=== PATIENT | male | born 1940 | race Caucasian/White ===

== ENCOUNTER → 2016-10-09 | Outpatient (CLI) | payer MEDICARE, OTHER ==
[~2016-10-09] VITALS: Ht 188 cm; Wt 97.3 kg
[~2016-10-09] MED LIST: ADVIL PM 38 MG-1 TAB PO; ALBUTEROL0.83 MG/ML IH; AMOXICILLIN 8751 TAB PO; ASPIRIN E.C. 8181 MG PO; ATIVAN 0.50.5 MG/TAB PO; COLACE 100100 MG/CAP PO; COUMADIN 1010 MG/TAB PO; COUMADIN 5MG5 MG/TAB PO; COUMADIN 77.5 MG/TAB PO; DECADRON 4MG TAB4 MG PO; DOXYCYCLINE 10100 MG PO; ELIQUIS 5MG PO; FLAGYL500 MG PO; FORTAMET1000 MG PO; GLUCOPHAGE1000 MG PO; K-TAB20 PO; LASIX 20MG TABL20 MG PO; LEVAQUIN 5500 MG/TA1 PO; LISINOPRIL10 MG PO; MULTIPLE VITAMI1 CAP PO; NEURONTIN100 MG PO; NEURONTIN100 MG/CAP PO; NEURONTIN300 MG/CAP PO; NORCO 325 MG-51 TAB PO; OXYCONTIN PO; ROXANOL 20MG20 MG/ML PO; SLEEP AID50 MG PO; STOOL SOFTENER100 M2 PO; VIAGRA 25MG TAB25 MG; VITAMIN B-625 MG PO; ZOFRAN 4MG T4 MG/TAB PO; ZOFRAN ODT4 MG PO
[2016-10-09 11:50] VITALS: BP 116/72; PULSE 83
[2016-10-09 13:00] VITALS: BP 109/49; PULSE 79
== END ==
LOC: COL.RAD 11:29
DX: K52.9 Noninfective gastroenteritis and colitis, unspecified (principal); R18.8 Other ascites; Z85.07 Personal history of malignant neoplasm of pancreas; Z79.01 Long term (current) use of anticoagulants; Z79.899 Other long term (current) drug therapy
CPT/HCPCS: 19804

== ENCOUNTER → 2016-10-20 | Outpatient (CLI) | payer MEDICARE, OTHER ==
[~2016-10-20] VITALS: Ht 188 cm; Wt 97.3 kg
[2016-10-20 11:07] VITALS: BP 121/76; PULSE 106
[2016-10-20 12:45] VITALS: BP 108/66; PULSE 92
== END ==
LOC: COL.RAD 10:46
DX: C25.0 Malignant neoplasm of head of pancreas (principal)
CPT/HCPCS: 19804

== ENCOUNTER → 2016-10-29 | Outpatient (CLI) | payer MEDICARE, OTHER ==
[~2016-10-29] VITALS: Ht 188 cm; Wt 96.8 kg
[2016-10-29 11:57] VITALS: BP 118/79; PULSE 100
[2016-10-29 13:10] VITALS: BP 111/72; PULSE 94
== END ==
LOC: COL.RAD 11:36
DX: C25.0 Malignant neoplasm of head of pancreas (principal)
CPT/HCPCS: 19804

== ENCOUNTER → 2016-11-05 | Outpatient (CLI) | payer MEDICARE, OTHER ==
[~2016-11-05] VITALS: Ht 188 cm; Wt 97.3 kg
[2016-11-05 08:36] VITALS: BP 99/67; PULSE 83
[2016-11-05 09:40] VITALS: BP 105/63; PULSE 80
== END ==
LOC: COL.RAD 08:21
DX: R18.8 Other ascites (principal); C25.0 Malignant neoplasm of head of pancreas
CPT/HCPCS: 19804

== ENCOUNTER 2016-11-06 10:22 | Day surgery (SDC) | payer MEDICARE, OTHER ==
[~2016-11-06] VITALS: Ht 190.5 cm; Wt 87.0 kg
[~2016-11-06 10:22] MED LIST changes: -ADVIL PM 38 MG-1 TAB PO; -ALBUTEROL0.83 MG/ML IH; -ATIVAN 0.50.5 MG/TAB PO; -DECADRON 4MG TAB4 MG PO; -DOXYCYCLINE 10100 MG PO; -LASIX 20MG TABL20 MG PO; -ROXANOL 20MG20 MG/ML PO; -SLEEP AID50 MG PO; -ZOFRAN 4MG T4 MG/TAB PO; -ZOFRAN ODT4 MG PO
[2016-11-06 11:27] VITALS: BP 112/48; PULSE 78; TEMP 97.9
[2016-11-06 11:59] LABS: BASO % 0.4 % (0.0-2.0); EOS # 0.1 (0.0-0.7); EOS % 2.1 % (0-4.0); GRAN # 4.3 (1.4-6.5); HEMATOCRIT 34.9 % (42.0-52.0); HEMOGLOBIN 11.3 g/dl (13.5-18.0); LYMPH # 0.7 (1.2-3.4); LYMPH % 12.9 % (20.0-51.0); MEAN CELL VOLUME 93 fl (80.0-100.0); MEAN CORPUSCULAR HEMOGLOBIN 30 pg (27.0-31.0); MEAN CORPUSCULAR HGB CONC 32 g/dl (33.0-37.0); MEAN PLATELET VOLUME 10.6 fl (7.4-10.4); MONO # 0.5 (0.1-0.6); MONO % 9.2 % (1.7-9.3); PLATELET COUNT 132 K/mm3 (130-400); RED BLOOD COUNT 3.75 M/mm3 (4.20-5.60); REDCELL DISTRIBUTION WIDTH-CV 14.3 % (11.5-14.5); WHITE BLOOD COUNT 5.7 K/mm3 (4.8-10.8)
[2016-11-06 12:16] LABS: CALCIUM 8.2 mg/dL (8.4-10.2); CREATININE, serum 0.75 mg/dL (0.66-1.25); POTASSIUM 3.7 mmol/L (3.4-5.0)
[2016-11-06] MEDS ORDERED: ZOFRAN ODT4 MG PO (14:44)
[2016-11-06] MEDS ORDERED: NORCO 325 MG-51 TAB PO (14:44)
[2016-11-06 15:00] VITALS: BP 93/52; PULSE 71; TEMP 97.4
[2016-11-06 15:10] VITALS: TEMP 98
[2016-11-06 15:15] VITALS: BP 114/51; PULSE 73
[2016-11-06 15:30] VITALS: BP 111/50; PULSE 71
[2016-11-06 15:45] VITALS: BP 101/46; PULSE 72
[2016-11-20] MEDS ORDERED: DECADRON 4MG TAB4 MG PO (11:05)
[2016-11-20] MEDS ORDERED: LASIX 20MG TABL20 MG PO (11:05)
[2017-01-08] MEDS ORDERED: ADVIL PM 38 MG-1 TAB PO (12:08)
== END 2016-11-06 16:30 | disposition home or self-care (01) ==
LOC: SDCO 10:22
PROVIDERS: Surgery
DX: R18.8 Other ascites (principal); K65.8 Other peritonitis
CPT/HCPCS: J1644; J2270; J2704; J2765; J3010; J7120

== ENCOUNTER → 2016-11-20 | Outpatient (CLI) | payer MEDICARE, OTHER ==
[~2016-11-20] VITALS: Ht 190.5 cm; Wt 89.4 kg
[~2016-11-20] MED LIST changes: +ADVIL PM 38 MG-1 TAB PO; +ALBUTEROL0.83 MG/ML IH; +ATIVAN 0.50.5 MG/TAB PO; +DECADRON 4MG TAB4 MG PO; +DOXYCYCLINE 10100 MG PO; +LASIX 20MG TABL20 MG PO; +ROXANOL 20MG20 MG/ML PO; +SLEEP AID50 MG PO; +ZOFRAN 4MG T4 MG/TAB PO; +ZOFRAN ODT4 MG PO
[2016-11-20 11:14] VITALS: BP 122/73; PULSE 90
[2016-11-20 13:00] VITALS: BP 106/68; PULSE 61
== END ==
LOC: COL.RAD 10:52
DX: R18.8 Other ascites (principal)
CPT/HCPCS: 19804

== ENCOUNTER 2016-12-02 13:11 | Day surgery (SDC) | payer MEDICARE, OTHER ==
[~2016-12-02] VITALS: Ht 188 cm; Wt 89.0 kg
[~2016-12-02 13:11] MED LIST changes: -ADVIL PM 38 MG-1 TAB PO; -ALBUTEROL0.83 MG/ML IH; -ATIVAN 0.50.5 MG/TAB PO; -DOXYCYCLINE 10100 MG PO; -ROXANOL 20MG20 MG/ML PO; -SLEEP AID50 MG PO; -ZOFRAN 4MG T4 MG/TAB PO
[2016-12-02 14:24] VITALS: BP 117/69; PULSE 87; TEMP 97.5
[2016-12-02 15:30] VITALS: BP 100/78; PULSE 73
[2016-12-02 15:45] VITALS: BP 108/65; PULSE 67
[2016-12-02 16:00] VITALS: BP 111/65; PULSE 66
[2016-12-02 16:15] VITALS: BP 114/81; PULSE 76
[2017-01-08] MEDS ORDERED: ADVIL PM 38 MG-1 TAB PO (12:08)
== END 2016-12-02 16:35 | disposition home or self-care (01) ==
LOC: SDCO 13:11
DX: C25.9 Malignant neoplasm of pancreas, unspecified (principal); K83.1 Obstruction of bile duct; K31.89 Other diseases of stomach and duodenum; K29.60 Other gastritis without bleeding; E11.9 Type 2 diabetes mellitus without complications; Z86.010 Personal history of colon polyps; Z79.82 Long term (current) use of aspirin; Z79.84 Long term (current) use of oral hypoglycemic drugs; Z79.899 Other long term (current) drug therapy
CPT/HCPCS: C1769; J2704

== ENCOUNTER 2016-12-04 13:52 | Day surgery (SDC) | payer MEDICARE, OTHER ==
[~2016-12-04] VITALS: Ht 190.5 cm; Wt 88.6 kg
[2016-12-04] MEDS ORDERED: SLEEP AID50 MG PO (15:00)
[2016-12-04 15:08] VITALS: BP 103/67; PULSE 92; TEMP 97.7
[2016-12-04 16:47] VITALS: BP 105/60; PULSE 81; TEMP 97.6
[2016-12-04 17:00] VITALS: BP 108/73; PULSE 72
[2016-12-04 17:15] VITALS: BP 105/63; PULSE 77
[2016-12-04 17:30] VITALS: BP 104/67; PULSE 72
[2017-01-08] MEDS ORDERED: ADVIL PM 38 MG-1 TAB PO (12:08)
== END 2016-12-04 17:45 ==
LOC: SDCO 13:52
DX: C25.9 Malignant neoplasm of pancreas, unspecified (principal); C24.0 Malignant neoplasm of extrahepatic bile duct; K29.80 Duodenitis without bleeding; K31.9 Disease of stomach and duodenum, unspecified; E11.9 Type 2 diabetes mellitus without complications; Z86.010 Personal history of colon polyps; Z79.82 Long term (current) use of aspirin; Z79.84 Long term (current) use of oral hypoglycemic drugs; Z79.899 Other long term (current) drug therapy
CPT/HCPCS: C1769; C2625; J1644; J2704; J3010; J7030; Q9967

== ENCOUNTER → 2016-12-07 | Outpatient (CLI) | payer MEDICARE, OTHER ==
[~2016-12-07] VITALS: Ht 190.5 cm; Wt 88.6 kg
[~2016-12-07] MED LIST changes: +ADVIL PM 38 MG-1 TAB PO; +ALBUTEROL0.83 MG/ML IH; +ATIVAN 0.50.5 MG/TAB PO; +DOXYCYCLINE 10100 MG PO; +ROXANOL 20MG20 MG/ML PO; +SLEEP AID50 MG PO; +ZOFRAN 4MG T4 MG/TAB PO
[2016-12-07 13:34] VITALS: BP 118/72; PULSE 82
[2016-12-07 15:30] VITALS: BP 101/66; PULSE 65
== END ==
LOC: COL.RAD 12-04 06:45
DX: R18.8 Other ascites (principal)
CPT/HCPCS: 19804

== ENCOUNTER → 2016-12-18 | Outpatient (CLI) | payer MEDICARE, OTHER ==
[~2016-12-18] VITALS: Ht 190.5 cm; Wt 88.5 kg
[2016-12-18 12:39] VITALS: BP 101/74; PULSE 83
[2016-12-18 14:00] VITALS: BP 90/63; PULSE 71
[2016-12-18 14:10] VITALS: BP 95/57; PULSE 69
[2016-12-18 14:20] VITALS: BP 93/60; PULSE 77
[2016-12-18 14:30] VITALS: BP 91/62; PULSE 81
== END ==
LOC: COL.RAD 12:13
DX: R18.8 Other ascites (principal); C25.0 Malignant neoplasm of head of pancreas
CPT/HCPCS: 19804

== ENCOUNTER → 2017-01-01 | Outpatient (CLI) | payer MEDICARE, OTHER ==
[~2017-01-01] VITALS: Ht 190.5 cm; Wt 88.8 kg
[2017-01-01 12:12] VITALS: BP 105/71; PULSE 98
[2017-01-01 14:13] VITALS: BP 74/53; PULSE 96
[2017-01-01 14:25] VITALS: BP 97/64; PULSE 76
== END ==
LOC: COL.RAD 11:48
DX: R18.8 Other ascites (principal); C25.0 Malignant neoplasm of head of pancreas
CPT/HCPCS: 19804

== ENCOUNTER → 2017-01-08 | Outpatient (CLI) | payer MEDICARE, OTHER ==
[~2017-01-08] VITALS: Ht 190.5 cm; Wt 86.2 kg
[2017-01-08 12:08] VITALS: BP 104/56; PULSE 101
[2017-01-08 14:25] VITALS: BP 88/59; PULSE 92
[2017-01-08 14:45] VITALS: BP 86/57; PULSE 93
[2017-01-08 15:00] VITALS: BP 84/60; PULSE 96
[2017-01-08 15:20] VITALS: BP 92/65; PULSE 90
== END ==
LOC: COL.RAD 11:54
DX: C25.0 Malignant neoplasm of head of pancreas (principal)
CPT/HCPCS: 19804

== ENCOUNTER → 2017-01-15 | Outpatient (CLI) | payer MEDICARE, OTHER ==
[~2017-01-15] VITALS: Ht 190.5 cm; Wt 89.0 kg
[2017-01-15 11:39] VITALS: BP 92/65; PULSE 90
[2017-01-15 13:09] VITALS: BP 81/48; PULSE 70
[2017-01-15 13:25] VITALS: BP 82/56; PULSE 78
[2017-01-15 13:50] VITALS: BP 82/53; PULSE 87
== END ==
LOC: COL.RAD 11:24
DX: C25.0 Malignant neoplasm of head of pancreas (principal)
CPT/HCPCS: 19804

== ENCOUNTER → 2017-01-22 | Outpatient (CLI) | payer MEDICARE, OTHER ==
[~2017-01-22] VITALS: Ht 190.5 cm; Wt 89.5 kg
[2017-01-22 12:02] VITALS: BP 85/63; BP 92/64; PULSE 96
[2017-01-22 13:08] VITALS: BP 82/56; PULSE 85
[2017-01-22 13:20] VITALS: BP 82/55; PULSE 87
== END ==
LOC: COL.RAD 11:38
DX: C25.9 Malignant neoplasm of pancreas, unspecified (principal)
CPT/HCPCS: 19804

== ENCOUNTER → 2017-01-29 | Outpatient (CLI) | payer MEDICARE, OTHER ==
[~2017-01-29] VITALS: Ht 190.5 cm; Wt 89.5 kg
[2017-01-29 11:44] VITALS: BP 90/66; PULSE 94
[2017-01-29 12:45] VITALS: BP 91/63; PULSE 91
== END ==
LOC: COL.RAD 11:15
DX: R18.8 Other ascites (principal)
CPT/HCPCS: 19804

== ENCOUNTER → 2017-02-05 | Outpatient (CLI) | payer MEDICARE, OTHER ==
[~2017-02-05] VITALS: Ht 190.5 cm; Wt 89.1 kg
[2017-02-05 11:15] VITALS: BP 105/69; PULSE 57
[2017-02-05 13:00] VITALS: BP 94/69; PULSE 87
== END ==
LOC: COL.RAD 10:57
DX: R18.8 Other ascites (principal); C25.0 Malignant neoplasm of head of pancreas
CPT/HCPCS: 19804

== ENCOUNTER → 2017-02-12 | Outpatient (CLI) | payer MEDICARE, OTHER ==
[~2017-02-12] VITALS: Ht 190.5 cm; Wt 75.0 kg
[2017-02-12 14:26] VITALS: BP 109/74; PULSE 68
[2017-02-12 15:35] VITALS: BP 82/60; PULSE 84
[2017-02-12 15:50] VITALS: BP 88/53; PULSE 82
== END ==
LOC: COL.RAD 14:15
DX: R18.8 Other ascites (principal); C25.0 Malignant neoplasm of head of pancreas

== ENCOUNTER → 2017-02-12 | Outpatient (CLI) | payer MEDICARE, OTHER | LOC: ZCOL.LAB 17:02 | DX: Z02.89 Encounter for other administrative examinations (principal) ==

== ENCOUNTER 2017-02-14 17:44 | Emergency (ER) | payer MEDICARE, OTHER ==
[~2017-02-14] VITALS: Ht 190.5 cm; Wt 89.5 kg
[~2017-02-14 17:44] MED LIST changes: -ALBUTEROL0.83 MG/ML IH; -ATIVAN 0.50.5 MG/TAB PO; -DOXYCYCLINE 10100 MG PO; -ROXANOL 20MG20 MG/ML PO; -ZOFRAN 4MG T4 MG/TAB PO
[2017-02-14 17:57] VITALS: BP 83/52
[2017-02-14 18:52] VITALS: PULSE 88
== END 2017-02-14 18:52 | disposition home or self-care (01) ==
LOC: COL.ER 17:44
DX: S51.811A Laceration without foreign body of right forearm, initial encounter (principal); S61.411A Laceration without foreign body of right hand, initial encounter; S41.111A Laceration without foreign body of right upper arm, initial encounter; W01.198A Fall on same level from slipping, tripping and stumbling with subsequent striking against other object, initial encounter; E11.9 Type 2 diabetes mellitus without complications; I10 Essential (primary) hypertension; Z86.718 Personal history of other venous thrombosis and embolism; Y92.008 Other place in unspecified non-institutional (private) residence as the place of occurrence of the external cause; Z79.01 Long term (current) use of anticoagulants

== ENCOUNTER 2017-02-17 11:10 | Emergency (ER) | payer MEDICARE, OTHER ==
[~2017-02-17] VITALS: Ht 190.5 cm; Wt 68.2 kg
[2017-02-17 11:17] VITALS: TEMP 97.3
[2017-02-17 11:58] VITALS: BP 89/64; PULSE 98
== END 2017-02-17 12:04 | disposition home or self-care (01) ==
LOC: COL.ER 11:10
DX: S51.811D Laceration without foreign body of right forearm, subsequent encounter (principal); X58.XXXD Exposure to other specified factors, subsequent encounter; E11.9 Type 2 diabetes mellitus without complications; I10 Essential (primary) hypertension; C25.9 Malignant neoplasm of pancreas, unspecified; Z86.718 Personal history of other venous thrombosis and embolism; Z79.01 Long term (current) use of anticoagulants

== ENCOUNTER → 2017-02-19 | Outpatient (CLI) | payer MEDICARE, OTHER ==
[~2017-02-19] VITALS: Ht 190.5 cm; Wt 81.4 kg
[~2017-02-19] MED LIST changes: +ALBUTEROL0.83 MG/ML IH; +ATIVAN 0.50.5 MG/TAB PO; +DOXYCYCLINE 10100 MG PO; +ROXANOL 20MG20 MG/ML PO; +ZOFRAN 4MG T4 MG/TAB PO
[2017-02-19 14:31] VITALS: BP 106/72; PULSE 88
[2017-02-19 15:36] VITALS: BP 108/78; PULSE 87
== END ==
LOC: COL.RAD 14:15
DX: R18.8 Other ascites (principal); C25.0 Malignant neoplasm of head of pancreas
CPT/HCPCS: 19804

== ENCOUNTER → 2017-03-01 | Outpatient (CLI) | payer MEDICARE, OTHER ==
[~2017-03-01] VITALS: Ht 190.5 cm; Wt 81.8 kg
[2017-03-01 12:17] VITALS: BP 89/55; PULSE 97
[2017-03-01 14:30] VITALS: BP 123/42; PULSE 88
== END ==
LOC: COL.RAD 11:41
DX: R18.8 Other ascites (principal); C25.0 Malignant neoplasm of head of pancreas
CPT/HCPCS: 19804

== ENCOUNTER → 2017-03-12 | Outpatient (CLI) | payer MEDICARE, OTHER ==
[~2017-03-12] VITALS: Ht 190.5 cm; Wt 35.9 kg
[2017-03-12 11:45] VITALS: BP 95/70; PULSE 82
[2017-03-12 13:20] VITALS: BP 100/57; PULSE 75
== END ==
LOC: COL.RAD 03-09 12:00
DX: R18.8 Other ascites (principal); C25.9 Malignant neoplasm of pancreas, unspecified
CPT/HCPCS: 19804

== ENCOUNTER 2017-03-17 10:39 | Emergency (ER) | payer MEDICARE, OTHER ==
[~2017-03-17] VITALS: Ht 188 cm; Wt 79.5 kg
[~2017-03-17 10:39] MED LIST changes: -ALBUTEROL0.83 MG/ML IH; -ATIVAN 0.50.5 MG/TAB PO; -DOXYCYCLINE 10100 MG PO; -ROXANOL 20MG20 MG/ML PO; -ZOFRAN 4MG T4 MG/TAB PO
[2017-03-17 10:46] VITALS: TEMP 97.7
[2017-03-17 11:44] LABS: BASO % 0.3 % (0.0-2.0); EOS # 0.1 (0.0-0.7); EOS % 0.5 % (0-4.0); LYMPH % 8.3 % (20.0-51.0); MEAN CELL VOLUME 89 fl (80.0-100.0); MEAN CORPUSCULAR HGB CONC 33 g/dl (33.0-37.0); MEAN PLATELET VOLUME 10.1 fl (7.4-10.4); MONO # 0.7 (0.1-0.6); MONO % 6.1 % (1.7-9.3); PLATELET COUNT 223 K/mm3 (130-400); RED BLOOD COUNT 4.07 M/mm3 (4.20-5.60); WHITE BLOOD COUNT 11.9 K/mm3 (4.8-10.8)
[2017-03-17 11:45] LABS: HEMATOCRIT 36.2 % (42.0-52.0); HEMOGLOBIN 11.9 g/dl (13.5-18.0); MEAN CORPUSCULAR HEMOGLOBIN 29 pg (27.0-31.0)
[2017-03-17 11:58] LABS: ADJUSTED CALCIUM 9.6 mg/dL (8.4-10.2); ALBUMIN 2.3 gm/dL (3.5-5.0); BILIRUBIN,TOTAL 0.7 mg/dL (0.0-1.0); CALCIUM 8.2 mg/dL (8.4-10.2); CREATININE, serum 1.28 mg/dL (0.66-1.25); POTASSIUM 3.8 mmol/L (3.4-5.0); TOTAL PROTEIN 4.9 gm/dL (6.4-8.2)
[2017-03-17] MEDS ORDERED: LASIX 20MG TABL20 MG PO (15:08)
[2017-03-17] MEDS ORDERED: DOXYCYCLINE 10100 MG PO (15:37)
[2017-03-17 16:06] VITALS: BP 92/69; PULSE 85
== END 2017-03-17 16:06 | disposition home or self-care (01) ==
LOC: COL.ER 10:39
PROVIDERS: Emergency Medicine
DX: S51.812A Laceration without foreign body of left forearm, initial encounter (principal); S51.811A Laceration without foreign body of right forearm, initial encounter; S41.112A Laceration without foreign body of left upper arm, initial encounter; S41.111A Laceration without foreign body of right upper arm, initial encounter; L03.113 Cellulitis of right upper limb; X58.XXXA Exposure to other specified factors, initial encounter; E87.1 Hypo-osmolality and hyponatremia; C61 Malignant neoplasm of prostate; R41.82 Altered mental status, unspecified
CPT/HCPCS: J7040

== ENCOUNTER → 2017-03-18 | Outpatient (CLI) | payer MEDICARE, OTHER ==
[~2017-03-18] MED LIST changes: +ALBUTEROL0.83 MG/ML IH; +ATIVAN 0.50.5 MG/TAB PO; +DOXYCYCLINE 10100 MG PO; +ROXANOL 20MG20 MG/ML PO; +ZOFRAN 4MG T4 MG/TAB PO
== END ==
LOC: WCC 08:47
DX: S50.811A Abrasion of right forearm, initial encounter (principal); S50.812A Abrasion of left forearm, initial encounter; R18.8 Other ascites; Z85.068 Personal history of other malignant neoplasm of small intestine; Z91.81 History of falling
CPT/HCPCS: 17717; A6212; G0463

== ENCOUNTER → 2017-03-18 | Outpatient (CLI) | payer MEDICARE, OTHER ==
[~2017-03-18] VITALS: Ht 188 cm; Wt 79.5 kg
[2017-03-18 15:02] VITALS: BP 119/46; PULSE 74
== END ==
LOC: COL.RAD 12:08
DX: C25.9 Malignant neoplasm of pancreas, unspecified (principal); G31.89 Other specified degenerative diseases of nervous system; I67.82 Cerebral ischemia; R18.8 Other ascites
CPT/HCPCS: A9585

== ENCOUNTER → 2017-03-22 | Outpatient (CLI) | payer MEDICARE, OTHER | LOC: WCC 11:27 | DX: S50.811A Abrasion of right forearm, initial encounter (principal); S50.812A Abrasion of left forearm, initial encounter; Z91.81 History of falling | CPT/HCPCS: 17716; 17717; A6212; G0463 ==

== ENCOUNTER → 2017-04-02 | Outpatient (CLI) | payer MEDICARE, OTHER ==
[~2017-04-02] VITALS: Ht 188 cm; Wt 79.5 kg
[2017-04-02 09:27] VITALS: BP 88/65; PULSE 100
[2017-04-02 11:25] VITALS: BP 94/65; PULSE 88
== END ==
LOC: COL.RAD 09:10
DX: R18.8 Other ascites (principal); C25.9 Malignant neoplasm of pancreas, unspecified
CPT/HCPCS: 19804

== ENCOUNTER → 2017-04-05 | Outpatient (CLI) | payer MEDICARE, OTHER | LOC: WCC 03-29 09:17 | DX: S41.112A Laceration without foreign body of left upper arm, initial encounter (principal); S41.111A Laceration without foreign body of right upper arm, initial encounter | CPT/HCPCS: 17716; 27516; 50007; A6207; A6212; Q4172 ==

== ENCOUNTER 2017-04-09 09:45 | Inpatient (IN) | payer MEDICARE, OTHER ==
[~2017-04-09] VITALS: Ht 190.5 cm; Wt 92.8 kg
[2017-04-09] VITALS (575 sets, daily range): BP systolic 64–110; BP diastolic 28–68; PULSE 74–85; TEMP 98–98.9; O2SAT 65–100
[~2017-04-09 09:45] MED LIST changes: -ALBUTEROL0.83 MG/ML IH; -ATIVAN 0.50.5 MG/TAB PO; -ROXANOL 20MG20 MG/ML PO; -ZOFRAN 4MG T4 MG/TAB PO
[2017-04-09 10:37] LABS: MEAN CELL VOLUME 90 fl (80.0-100.0); MEAN CORPUSCULAR HGB CONC 33 g/dl (33.0-37.0); PLATELET COUNT 184 K/mm3 (130-400); RED BLOOD COUNT 3.45 M/mm3 (4.20-5.60); REDCELL DISTRIBUTION WIDTH-CV 16.1 % (11.5-14.5)
[2017-04-09 10:42] LABS: ADD PATHOLOGY DIFF REVIEW NO; HEMATOCRIT 31.2 % (42.0-52.0); HEMOGLOBIN 10.2 g/dl (13.5-18.0); MEAN CORPUSCULAR HEMOGLOBIN 30 pg (27.0-31.0); WHITE BLOOD COUNT 21.4 K/mm3 (4.8-10.8)
[2017-04-09 10:49] LABS: ADJUSTED CALCIUM 9.8 mg/dL (8.4-10.2); BILIRUBIN,TOTAL 1.2 mg/dL (0.0-1.0); CALCIUM 8.2 mg/dL (8.4-10.2); CREATININE, serum 1.34 mg/dL (0.66-1.25); POTASSIUM 4.8 mmol/L (3.4-5.0); TOTAL PROTEIN 4.6 gm/dL (6.4-8.2)
[2017-04-09 11:25] LABS: ANISOCYTOSIS 1+; BAND 13 % (0-10); MYELOCYTE 4 % (0-0); NEUTROPHILS 81 % (42.0-75.2); OVALOCYTES 1+; PLATELET ESTIMATE NORMAL (NORMAL); TOTAL CELLS COUNTED 100
[2017-04-09] MEDS ORDERED: LASIX 20MG TABL20 MG PO (11:56)
[2017-04-09] MEDS ORDERED: DECADRON 4MG TAB4 MG PO (12:25)
[2017-04-09] MEDS ORDERED: ADVIL PM 38 MG-1 TAB PO (12:26)
[2017-04-09] MEDS ORDERED: ELIQUIS 5MG PO (12:27)
[2017-04-09 17:35] LABS: VENOUS BLOOD GAS BE -6.8 (-4-4); VENOUS BLOOD GAS SAO2 66.3 % (60-80)
[2017-04-09 17:36] LABS: VENOUS BLOOD GAS SITE CENTRAL LINE
[2017-04-09 17:52] LABS: SALICYLATE < 1.0 mg/dL
[2017-04-09 17:59] LABS: PH 5 (5-8); SQUAMOUS EPITHELIAL None Seen /hpf; URINE APPEARANCE Clear; URINE BACTERIA None Seen /hpf; URINE BILIRUBIN Negative (NEGATIVE); URINE BLOOD Negative (NEGATIVE); URINE COLOR Amber; URINE GLUCOSE Negative (NEGATIVE); URINE KETONE Negative (NEGATIVE); URINE UROBILINOGEN Negative (NEGATIVE); URINE WBC 0-2 /hpf
[2017-04-09 18:00] LABS: TROPONIN-I 0.033 ng/mL (0.000-0.034)
[2017-04-09 18:08] LABS: ALLEN TEST YES; ALLENS TEST RESULT PASS; ARTERIAL BLD GAS O2 SATURATION 94.4 % (92-100); ARTERIAL BLD GAS TCO2 CT 19.4; ARTERIAL BLOOD GAS BASE EXCESS -4.5 (-2-2); ARTERIAL BLOOD GAS HCO3 18.5 meq/L (22-26); ARTERIAL BLOOD GAS PO2 72.3 mmHg (80-100); ARTERIAL BLOOD GAS pH 7.44 (7.35-7.45); ATS? YES; OXYHEMOGLOBIN 93.6 %
[2017-04-09 21:52] LABS: VENOUS BLOOD GAS BE -7.4 (-4-4); VENOUS BLOOD GAS SAO2 70.1 % (60-80)
[2017-04-09 21:53] LABS: VENOUS BLOOD GAS SITE CENTRAL LINE
[2017-04-10] VITALS (1361 sets, daily range): BP systolic 100–118; BP diastolic 54–61; PULSE 81–98; TEMP 97.5–98.4; O2SAT 74–100
[2017-04-10 03:24] LABS: VENOUS BLOOD GAS BE -6.7 (-4-4); VENOUS BLOOD GAS SAO2 58.7 % (60-80)
[2017-04-10 03:25] LABS: VENOUS BLOOD GAS SITE CENTRAL LINE
[2017-04-10 03:27] LABS: BASO % 0.2 % (0.0-2.0); GRAN # 16.8 (1.4-6.5); GRAN % 87.7 % (42.2-75.2); LYMPH # 0.7 (1.2-3.4); LYMPH % 3.8 % (20.0-51.0); MEAN CELL VOLUME 90 fl (80.0-100.0); MEAN CORPUSCULAR HGB CONC 33 g/dl (33.0-37.0); MEAN PLATELET VOLUME 9.5 fl (7.4-10.4); MONO # 1.3 (0.1-0.6); MONO % 6.9 % (1.7-9.3); PLATELET COUNT 242 K/mm3 (130-400); RED BLOOD COUNT 3.23 M/mm3 (4.20-5.60); REDCELL DISTRIBUTION WIDTH-CV 16.1 % (11.5-14.5); WHITE BLOOD COUNT 19.1 K/mm3 (4.8-10.8)
[2017-04-10 03:42] LABS: HEMOGLOBIN 9.5 g/dl (13.5-18.0); MEAN CORPUSCULAR HEMOGLOBIN 29 pg (27.0-31.0)
[2017-04-10 03:44] LABS: INR 1.3 (0.8-3.0); PROTHROMBIN TIME 15.1 SECONDS (9.7-12.8)
[2017-04-10 03:48] LABS: ADJUSTED CALCIUM 9.2 mg/dL (8.4-10.2); ALBUMIN 1.8 gm/dL (3.5-5.0); BILIRUBIN,TOTAL 1.2 mg/dL (0.0-1.0); CALCIUM 7.4 mg/dL (8.4-10.2); CREATININE, serum 1.01 mg/dL (0.66-1.25); MAGNESIUM 1.4 mg/dL (1.6-2.3); POTASSIUM 4.1 mmol/L (3.4-5.0); TOTAL PROTEIN 4.2 gm/dL (6.4-8.2)
[2017-04-10 05:19] LABS: ARTERIAL BLD GAS O2 SATURATION 88.4 % (92-100); ARTERIAL BLD GAS TCO2 CT 15.6; ARTERIAL BLOOD GAS BASE EXCESS -9.2 (-2-2); ARTERIAL BLOOD GAS HCO3 14.8 meq/L (22-26); ARTERIAL BLOOD GAS PO2 59.2 mmHg (80-100); ARTERIAL BLOOD GAS pH 7.36 (7.35-7.45); OXYHEMOGLOBIN 87.7 %
[2017-04-10 05:21] LABS: ALLEN TEST YES; ATS? YES
[2017-04-10 05:22] LABS: ALLENS TEST RESULT PASS
[2017-04-10 05:52] LABS: VENOUS BLOOD GAS BE -10.6 (-4-4); VENOUS BLOOD GAS SAO2 60.4 % (60-80)
[2017-04-10 05:53] LABS: VENOUS BLOOD GAS SITE CENTRAL LINE
[2017-04-10 10:15] LABS: VENOUS BLOOD GAS BE -10.8 (-4-4); VENOUS BLOOD GAS SAO2 70.8 % (60-80)
[2017-04-10 10:16] LABS: VENOUS BLOOD GAS SITE CENTRAL LINE
[2017-04-10 13:55] LABS: VENOUS BLOOD GAS BE -9.2 (-4-4); VENOUS BLOOD GAS SAO2 71.9 % (60-80)
[2017-04-10 13:57] LABS: VENOUS BLOOD GAS SITE CENTRAL LINE
[2017-04-11] VITALS (1259 sets, daily range): BP systolic 81–141; BP diastolic 44–61; PULSE 83–98; TEMP 97.3–98.1; O2SAT 53–100
[2017-04-11 04:37] LABS: BASO % 0.1 % (0.0-2.0); GRAN # 11.4 (1.4-6.5); GRAN % 88.4 % (42.2-75.2); HEMATOCRIT 30.2 % (42.0-52.0); HEMOGLOBIN 9.8 g/dl (13.5-18.0); INR 1.2 (0.8-3.0); LYMPH # 0.6 (1.2-3.4); LYMPH % 4.4 % (20.0-51.0); MEAN CELL VOLUME 90 fl (80.0-100.0); MEAN CORPUSCULAR HEMOGLOBIN 29 pg (27.0-31.0); MEAN CORPUSCULAR HGB CONC 33 g/dl (33.0-37.0); MEAN PLATELET VOLUME 9.6 fl (7.4-10.4); MONO # 0.8 (0.1-0.6); MONO % 6.2 % (1.7-9.3); PLATELET COUNT 139 K/mm3 (130-400); PROTHROMBIN TIME 13.6 SECONDS (9.7-12.8); RED BLOOD COUNT 3.34 M/mm3 (4.20-5.60); WHITE BLOOD COUNT 12.9 K/mm3 (4.8-10.8)
[2017-04-11 04:40] LABS: PARTIAL THROMBOPLASTIN TIME 41.2 SECONDS (26.0-37.0)
[2017-04-11 04:44] LABS: ADJUSTED CALCIUM 9.2 mg/dL (8.4-10.2); ALBUMIN 1.8 gm/dL (3.5-5.0); BILIRUBIN,TOTAL 0.7 mg/dL (0.0-1.0); CALCIUM 7.4 mg/dL (8.4-10.2); CREATININE, serum 1.06 mg/dL (0.66-1.25); POTASSIUM 4.2 mmol/L (3.4-5.0); TOTAL PROTEIN 4.3 gm/dL (6.4-8.2)
[2017-04-11 05:00] LABS: VANCOMYCIN TROUGH 21.23 ug/mL (7.00-20.00)
[2017-04-11 05:16] LABS: ARTERIAL BLD GAS O2 SATURATION 96.4 % (92-100); ARTERIAL BLD GAS TCO2 CT 13.7; ARTERIAL BLOOD GAS BASE EXCESS -11.1 (-2-2); ARTERIAL BLOOD GAS HCO3 12.9 meq/L (22-26); ARTERIAL BLOOD GAS PHT 7.35 C (7.35-7.45); ARTERIAL BLOOD GAS PO2 94.6 mmHg (80-100); ARTERIAL BLOOD GAS PO2T 94.6 (80-100); ARTERIAL BLOOD GAS pH 7.35 (7.35-7.45); OXYHEMOGLOBIN 95.5 %
[2017-04-11 05:18] LABS: ATS? NO
[2017-04-11 05:19] LABS: ALLEN TEST NO
[2017-04-12] VITALS (657 sets, daily range): BP systolic 101–128; BP diastolic 28–84; PULSE 80–105; TEMP 97.6–98.5; O2SAT 78–100
[2017-04-12 05:13] LABS: BASO % 0.1 % (0.0-2.0); GRAN # 8.8 (1.4-6.5); GRAN % 88.7 % (42.2-75.2); HEMATOCRIT 27.9 % (42.0-52.0); LYMPH # 0.4 (1.2-3.4); LYMPH % 4.3 % (20.0-51.0); MEAN CELL VOLUME 90 fl (80.0-100.0); MEAN CORPUSCULAR HEMOGLOBIN 29 pg (27.0-31.0); MEAN CORPUSCULAR HGB CONC 32 g/dl (33.0-37.0); MEAN PLATELET VOLUME 9.9 fl (7.4-10.4); MONO # 0.6 (0.1-0.6); MONO % 6.2 % (1.7-9.3); PLATELET COUNT 130 K/mm3 (130-400); RED BLOOD COUNT 3.11 M/mm3 (4.20-5.60); REDCELL DISTRIBUTION WIDTH-CV 16.1 % (11.5-14.5); WHITE BLOOD COUNT 9.9 K/mm3 (4.8-10.8)
[2017-04-12 05:24] LABS: ADJUSTED CALCIUM 9.5 mg/dL (8.4-10.2); ALBUMIN 2.2 gm/dL (3.5-5.0); BILIRUBIN,TOTAL 0.6 mg/dL (0.0-1.0); CALCIUM 8.1 mg/dL (8.4-10.2); CREATININE, serum 1.28 mg/dL (0.66-1.25); POTASSIUM 3.9 mmol/L (3.4-5.0); TOTAL PROTEIN 4.6 gm/dL (6.4-8.2)
[2017-04-13] MEDS ORDERED: ROXANOL 20MG20 MG/ML PO (11:59)
[2017-04-13] MEDS ORDERED: ALBUTEROL0.83 MG/ML IH (12:01)
[2017-04-13] MEDS ORDERED: ZOFRAN 4MG T4 MG/TAB PO (12:03)
[2017-04-13] MEDS ORDERED: ATIVAN 0.50.5 MG/TAB PO (12:03)
== END 2017-04-13 16:18 | disposition hospice, inpatient (51) | DRG 871 ==
LOC: COL.ER 09:45 → ICU 11:28 → MEDICAL 04-12 22:19
PROVIDERS: Family Medicine
PROC: 0W9G3ZZ Drainage of Peritoneal Cavity, Percutaneous Approach (ICD-10-PCS; principal; 2017-04-11)
DX: A41.9 Sepsis, unspecified organism (principal); J18.9 Pneumonia, unspecified organism; E43 Unspecified severe protein-calorie malnutrition; C25.0 Malignant neoplasm of head of pancreas; R18.0 Malignant ascites; Z66 Do not resuscitate; Z51.5 Encounter for palliative care; I10 Essential (primary) hypertension; E11.42 Type 2 diabetes mellitus with diabetic polyneuropathy; E88.09 Other disorders of plasma-protein metabolism, not elsewhere classified
CPT/HCPCS: 99223-AI; 99232-AI; 99233-AI; C1751; J0692; J1644; J1650; J1940; J1956; J2060; J2270; J3370; J7030; J7050; J7060; J8540; P9047